=== PATIENT | female | born 1930 | race Caucasian/White ===

== ENCOUNTER 2016-11-28 12:19 | Emergency (ER) | payer MEDICARE, OTHER ==
[2016-11-28] MEDS ORDERED: Aspirin 81 MG Tab.Chew CHEW ONE (12:28)
[2016-11-28] MEDS ORDERED: Famotidine 20 MG/2 ML SDV IVPUSH ONE (12:28)
[2016-11-28] MEDS ORDERED: Ticagrelor 90 MG Tab PO ONE (12:28)
--- NOTE | 2016-11-28 12:28 | EDM.PDOC ---
ED HPI GENERAL MEDICAL PROBLEM - General Chief Complaint: Cardiovascular Problem Stated Complaint: NAUSEA, WEAKNESS Time Seen by Provider: 11/28/16 12:20 Source of Information: Reports: Patient, EMS Notes Reviewed, Family (Daughter), Other (Limited records from [place]). Denies: EMS, Old Records (No [facility] records available) History Limitations: Reports: No Limitations - History of Present Illness INITIAL COMMENTS - FREE TEXT/NARRATIVE: The patient was brought to the emergency room via ambulance with basic transport with no treatment in route. She was initially evaluated by her regular provider, Taylor Rodriguez PA-C, at [facility] in [place], with newly diagnosed atrial fibrillation with rapid ventricular response at that time with no treatment given in that facility. Patient did have some nonspecific URI symptoms during the last week, although those symptoms have improved somewhat at this time with no history of food poisoning or known exposure to infection. She began complaining of some nonspecific weakness and fatigue 2 days ago with progressive symptoms since about 6 AM yesterday morning , including some intermittent nausea, nonspecific generalized abdominal cramping , progressive weakness, dizziness, mild diaphoresis, and heart flutter. The patient denies any chest pain/pressure, orthopnea, paresthesias, or any other anginal-type symptoms, although somewhat decreased exercise tolerance during the last couple of months. No recent history of other abdominal pain, heartburn , diarrhea, melena, gross hematochezia, or any food intolerance, including fatty foods, etc., however some mild anorexia and loose stools during the last couple of days with normal bowel movement earlier this morning. The patient also denies any recent fever, cough, wheezing, dyspnea, etc.. Patient also denies any recent medication noncompliance. She has not had previous problems with arrhythmia, heart disease, etc. in the past, and she denies any recent use of antihistamines, decongestants, etc. Onset: Gradual, Unknown/Unsure Onset Date: 11/26/16 Duration: Constant, Getting Worse Location: Reports: Abdomen, Other (No pain other than nonspecific abdominal cramping as above) Quality: Reports: Other (Cramping) Severity: Mild Improves with: Reports: None Worsens with: Reports: None Context: Reports: Other (As above) Associated Symptoms: Reports: Diaphoresis, Loss of Appetite, Nausea/Vomiting ( No emesis), Weakness. Denies: Confusion, Chest Pain, Cough, Fever/Chills, Malaise, Seizure, Shortness of Breath, Syncope Treatments CLINICAL PROGRAM COORDINATOR: Reports: Other (see below) (None) Abdominal Pain Score (Numeric/FACES): 4 - Related Data Allergies Allergy/AdvReac Type Severity Reaction Status Date / Time beef derived (bovine) Allergy Cannot Verified 11/28/16 12:54 Remember egg Allergy Cannot Verified 11/28/16 12:54 Remember Penicillins Allergy Cannot Verified 11/28/16 12:54 Remember simvastatin Allergy Cannot Verified 11/28/16 12:54 Remember enviromental allergens Allergy Other Uncoded 11/28/16 12:56 milk protein extract Allergy Cannot Uncoded 11/28/16 12:54 Remember Home Meds: Home Meds Acetaminophen [Tylenol Arthritis] 650 mg PO Q8H 11/28/16 [History] Ascorbate Calcium [Vitamin C] 1,000 mg PO DAILY 11/28/16 [History] Aspirin [Adult Low Dose Aspirin EC] 81 mg PO DAILY 11/28/16 [History] Calcium Carb/Vit D3/Minerals [Hm Calcium 600 mg-Vit D Tab] 1 tab PO DAILY@12 [History] Cholecalciferol (Vitamin D3) [Vitamin D3] 1,000 mg PO DAILY 11/28/16 [History] Filgrastim-Sndz [Zarxio] 300 mcg SUBCUT ONETIME 11/28/16 [History] Hydroxychloroquine Sulfate [Plaquenil] 200 mg PO DAILY 11/28/16 [History] Latanoprost [Xalatan] 1 drop EYEBOTH BEDTIME 11/28/16 [History] Levothyroxine 25 mcg PO DAILY 11/28/16 [History] Levothyroxine 125 mcg PO DAILY 11/28/16 [History] Levothyroxine 150 mcg PO DAILY 11/28/16 [History] Lisinopril 5 mg PO DAILY 11/28/16 [History] Loratadine 10 mg PO DAILY 11/28/16 [History] Metoprolol Tartrate [Lopressor] 75 mg PO BID 11/28/16 [History] Milk Thistle-Tumeric 1 cap PO DAILY 11/28/16 [History] Multivitamin with Minerals [Multivitamins with Minerals] 1 tab PO DAILY [History] Sodium Chloride [Sodium Chloride] 1 gm PO DAILY 11/28/16 [History] Vitamin E [Vitamin E] 400 unit PO DAILY 11/28/16 [History] predniSONE [Prednisone] 2.5 mg PO DAILY 11/28/16 [History] Past Medical History HEENT History: Reports: Allergic Rhinitis, Cataract, Glaucoma, Hard of Hearing, Impaired Vision, Other (See Below). Denies: Macular Degeneration, Retinal Detachment Other HEENT History: Patient was glasses, bilateral hearing aids Cardiovascular History: Reports: High Cholesterol, Hypertension. Denies: Afib, Aneurysm, Arrhythmia, Blood Clots/VTE/DVT, CAD, Heart Failure, Heart Murmur, CA , PVD, Syncope Respiratory History: Reports: Intubation, Previous. Denies: Asthma, Bronchitis , Recurrent, COPD, Intubation, Difficult, PE, Pneumonia, Recurrent, Pneumothorax , Pulmonary Fibrosis, Sleep Apnea, TB Gastrointestinal History: Reports: Cholelithiasis, Colon Polyp, Other (See Below ). Denies: Bowel Obstruction, Celiac Disease, Chronic Constipation, Chronic Diarrhea, Diverticulosis, Fecal Incontinence, Gastritis, GERD, GI Bleed, Hepatitis, Inflammatory Bowel Disease, Irritable Bowel Syndrome, Jaundice, Pancreatitis Other Gastrointestinal History: History of unknown type of multiple colonic polyps removed in about 2006 Genitourinary History: Reports: Urinary Incontinence. Denies: Acute Renal Failure, Chronic Renal Insuffiency, Dialysis, Renal Calculus, STD, UTI, Recurrent [employer]ER History: Reports: . Denies: Dysfunctional Uterine Bleeding, Endometriosis, Fibroids, Polycystic Ovaries, Spontaneous : 5 Para: 5 (Full term without complications during pregnancies or deliveries) LMP (Approximate): Menopausal (At about age 48) Musculoskeletal History: Reports: Arthritis, Back Pain, Chronic, Neck Pain, Chronic, Osteoarthritis, RA. Denies: Amputation, Fracture, Gout, Osteoporosis, SLE Neurological History: Reports: None. Denies: Alzheimers Disease, Cerebral Aneurysms, Concussion, CVA, Headaches, Chronic, Head Trauma, Migraines, MS, Neuropathy, Peripheral, Parkinson's, Seizure, TIA Psychiatric History: Reports: None. Denies: Abuse, Victim of, ADD, ADHD, Addiction, Anxiety, Depression, Psych Hospitalization(s), PTSD, Suicide Attempt , Suicidal Ideation Endocrine/Metabolic History: Reports: None, Hypothyroidism, Vitamin D Deficiency , Other (See Below). Denies: Diabetes, Type I, Diabetes, Type II, IDDM, Osteoporosis Other Endocrine/Metabolic History: Hypomagnesemia, hyponatremia with history of SIADH Hematologic History: Reports: Anemia, Iron Deficiency, Other (See Below). 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 Denies: AIDS, HIV, SLE Other Immunologic History: Myelodysplastic syndrome as above Oncologic (Cancer) History: Reports: Breast (Left-sided breast cancer at age 63/ 1992 with mastectomy as below but no chemotherapy or radiation therapy; mild myelodysplastic syndrome), Other (See Below). Denies: Basal Cell Carcinoma, Hodgkin's Lymphoma, Leukemia, Malignant Melanoma, Metastatic, Non-Hodgkin's Lymphoma, Squamous Cell Carcinoma Dermatologic History: Reports: None. Denies: Eczema, Psoriasis - Infectious Disease History Infectious Disease History: Reports: Chicken Pox, Measles, Mumps. Denies: C- Difficile, Meningitis, Mononucleosis, MRSA, Pertussis (Whooping Cough), Rheumatic Fever, Rubella, Scarlet Fever, Shingles, TB, VRE - Past Surgical History Head Surgeries/Procedures: Reports: None HEENT Surgical History: Reports: Cataract Surgery, Oral Surgery, Other (See Below). Denies: Adenoidectomy, Eye Surgery, Laser Surgery, LASIK, Myringotomy w Tube(s), Naso-Sinus Surgery, Tonsillectomy Other HEENT Surgeries/Procedures: Left Sided cataract surgery in her early 70s, total teeth extraction with lower dental extractions in November 2012 with complete dentures uppers and lowers Cardiovascular Surgical History: Reports: None. Denies: Varicose Respiratory Surgical History: Reports: None. Denies: Thoracentesis GI Surgical History: Reports: Appendectomy, Cholecystectomy, Colonoscopy, Polypectomy, Other (See Below). Denies: EGD, Hernia, Abdominal, Hernia, Inguinal, Hernia Repair/Other Other GI Surgeries/Procedures: Last colonoscopy including polypectomy in about 2006 as above, open cholecystectomy in 1992, appendectomy in 1992 Female Surgical History: Reports: Breast Biopsy, Other (See Below). 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 Denies: Arthroscopic Knee, Arthroscopic Procedure, Carpal Tunnel, Ganglion Cyst , ORIF, Shoulder Surgery Other Musculoskeletal Surgeries/Procedures:: Right TEP in 2012 Oncologic Surgical History: Reports: Biopsy of Breast, Bone Marrow Aspiration, Mastectomy, Other (See Below) Other Oncologic Surgeries/Procedures: Left-sided mastectomy including left axillary lymph node dissection in 1992; bone marrow needle aspiration biopsy including chromosomal evaluation on 06/03/15 Dermatological Surgical History: Reports: None - Past Imaging History Past Imaging History: Reports: CAT Scan (CT of the chest on 06/03/15), Mammogram (Right-sided in October 2015) Social & Family History - Family History HEENT: Reports: Allergic Rhinitis, Other (See Below). Denies: Glaucoma, Macular Degeneration Other HEENT Family History: Son and 2 daughters with allergic rhinitis Cardiac: Reports: CAD, High Cholesterol, Hypertension, CA, Stent, Other (See Below). Denies: Afib, Aneurysm, Arrhythmia, Blood Clots/VTE/DVT, Bypass, Heart Failure, Heart Murmur, Pacemaker, PVD/COD Other Cardiac Family History: Father with fatal CA at age 70, hyperlipidemia in 2 sisters, brother with PTCA/stent at age 64, hypertension in maternal grandmother and brother Respiratory: Reports: Sleep Apnea, Other (See Below). Denies: Asthma, COPD, PE , Pneumothorax Other Respiratory Family Hisory: Brother with sleep apnea GI: Reports: None. Denies: Celiac Disease, Cholelithiasis, Colon Polyps, Diverticulosis, GERD, GI bleed, Inflammatory Bowel Disease, Irritable Bowel Syndrome, PUD : Reports: None. Denies: Dialysis, Renal Calculus, Renal Disease/ Insufficiency OBGYN: Reports: Endometriosis, Recurrent Spontaneous , Other (See Below) . Denies: Fibroids Other OBGYN Family History: Daughter with endometriosis, another daughter with recurrent SAB Musculoskeletal: Reports: None. Denies: Gout, RA, SLE Neurological: Reports: Alzheimers Disease, Dementia, Other (See Below). Denies : CVA, Migraines, MS, Parkinson's, Seizure, TIA Other Neurological Family History: Brother with fatal OBS at age 74 Psychiatric: Reports: None. Denies: Abuse, Victim of, ADD, ADHD, Anxiety, Depression, Psych Hospitalization(s), PTSD, Suicide Attempt Endocrine/Metabolic: Reports: Diabetes, Type I, Other (See Below). Denies: Diabetes, type II, Hypothyroidism, IDDM Other Endocrine/Metabolic Family History: Granddaughter with type I IDDM diagnosed at age 5, patient and daughter deny previous family history of diabetes mellitus in sister despite previous medical records Hematologic: Reports: None. Denies: Anemia Immunologic: Reports: None. Denies: AIDS, HIV, SLE Dermatologic: Reports: None. Denies: Eczema, Psoriasis Oncologic: Reports: Breast, Metastatic, Other (See Below). Denies: Cervix, Colon, Hodgkin's Lymphoma, Leukemia, Lymphoma, Non-Hodgkin's Lymphoma, Skin, Uterine Other Oncologic Family History: Daughter with breast cancer at age 63, maternal grandmother with fatal metastatic breast cancer at age 83 - Tobacco Use Smoking Status *Q: Never Smoker Tobacco Use Within Last Twelve Months: No Used Tobacco, but Quit: No Smoking Cessation Information Provided To Patient: No Second Hand Smoke Exposure: No Second Hand Smoke Education Provided: No - Caffeine Use Caffeine Use: Reports: Coffee (2 cups per day), Tea (2 cups per day). Denies: Energy Drinks, Soda - Alcohol Use Alcohol Use History: No Days Per Week of Alcohol Use: 0 (No previous DWIs, problems with alcohol abuse, etc.) Alcohol Use in Last Twelve Months: No - Recreational Drug Use Recreational Drug Use: No Drug Use in Last 12 Months: No Recreational Drug Type: Denies: Amphetamines (Speed), Cocaine, Heroin, Inhalants (Glues, Solvents, Aerosols), LSD (Acid), Marijuana/Hashish, Methamphetamine, Morphine - Living Situation & Occupation Living situation: Reports: (1968, 5 children), Other (Family including 2 different daughters, during the winter months, otherwise alone on the farm) Occupation: Retired ([employer] ) ED ROS GENERAL - Review of Systems Review Of Systems: See Below Constitutional: Reports: Weakness, Fatigue, Diaphoresis, Decreased Appetite. Denies: Fever, Chills, Night Sweats, Weight Loss, Weight Gain HEENT: Reports: Glasses, Hearing Loss, Rhinitis. Denies: Contact Lenses, Dental Pain, Ear Discharge, Ear Pain, Eye Discharge, Eye Pain, Nosebleed, Nose Pain, Sinus Problem, Vision Change Respiratory: Reports: Shortness of Breath. Denies: Pleuritic Chest Pain, Cough , Sputum, Hemoptysis Cardiovascular: Reports: Dyspnea on Exertion, Lightheadedness, Palpitations. Denies: Chest Pain, Blood Pressure Problem, Claudication, Edema, Orthopnea, PND , Syncope Endocrine: Reports: Fatigue GI/Abdominal: Reports: Abdominal Pain (Nonspecific as above), Diarrhea ( Borderline), Decreased Appetite, Nausea. Denies: Anorexia, Black Stool, Bloody Stool, Constipation, Difficulty Swallowing, Distension, Flatus, Hematemesis, Hematochezia, Melena, Mucous in Stool, Stool Incontinence, Vomiting : Reports: Incontinence. Denies: Discharge, Dysuria, Flank Pain, Frequency, Hematuria, Pain, Urgency, Urinary Retention Musculoskeletal: Reports: No Symptoms. Denies: Neck Pain, Shoulder Pain, Arm Pain, Back Pain, Leg Pain Skin: Denies: Cyanosis, Pallor, Diaphoresis, Bruising, Pruritis, Wound Neurological: Reports: Dizziness, Weakness. Denies: Confusion, Headache, Numbness, Paresthesia, Seizure, Syncope, Tingling, Trouble Speaking, Difficulty Walking, Change in Speech Psychiatric: Reports: No Symptoms. Denies: Agitation, Anxiety, Confusion, Depression, Hallucinations Hematologic/Lymphatic: Reports: Anemia Immunologic: Reports: No Symptoms ED EXAM, GENERAL - Physical Exam Exam: See Below Exam Limited By: No Limitations General Appearance: Alert, WD/WN, No Apparent Distress Eye Exam: Bilateral Eye: EOMI, Normal Inspection (No nystagmus), PERRL Ears: Normal External Exam, Hearing Loss (Bilateral hearing aids) Nose: Normal Mucosa, No Blood, Clear Rhinorrhea (Mild bilateral). No: Nasal Tenderness, Nasal Deformity Throat/Mouth: Normal Inspection, Normal Lips, Normal Gums, Normal Oropharynx, Normal Voice, No Airway Compromise. No: Normal Teeth (Complete dentures uppers and lowers), Dysphagia, Perioral Cyanosis Head: Atraumatic, Normocephalic. No: Facial Swelling, Facial Tenderness, Sinus Tenderness Neck: Supple, Non-Tender, Full Range of Motion, Carotid Bruit (Mild bilateral carotid bruits). No: Lymphadenopathy (L), Lymphadenopathy (R), Thyromegaly Respiratory/Chest: No Accessory Muscle Use, Chest Non-Tender, Rales (Moderate bilateral basilar rales). No: Pleural Rub, Retractions Cardiovascular: Normal Peripheral Pulses, No Murmur, No Rub, Tachycardia ( Moderate to severe), Irregularly Irregular. No: No Edema, No Gallop, Gallop/S3 , Gallop/S4, Friction Rub Peripheral Pulses: 2+: Radial (L), Radial (R), Dorsalis Pedis (L), Dorsalis Pedis (R) GI/Abdominal: Normal Bowel Sounds, Soft, Non-Tender, No Organomegaly, No Distention, No Abnormal Bruit, No Mass. No: Guarding (Female) Exam: Deferred Rectal (Female) Exam: Deferred Back Exam: Normal Inspection, Full Range of Motion. No: CVA Tenderness (L), CVA Tenderness (R), Muscle Spasm Extremities: Normal Range of Motion, Non-Tender, No Pedal Edema, Normal Capillary Refill, Other (Moderate rheumatoid changes in the hands bilaterally). No: Mindy's Sign Neurological: Alert, Oriented, CN II-XII Intact, Normal Cognition, Normal Gait, Normal Reflexes (Negative Babinski's), No Motor/Sensory Deficits Psychiatric: Normal Affect, Normal Mood Skin Exam: Warm, Dry, Intact, Normal Color, No Rash. No: Diaphoretic, Ecchymosis, Pallor, Petechiae, Wound/Incision Lymphatic: No Adenopathy EKG INTERPRETATION EKG Date: 11/28/16 Time: 12:20 Rhythm: A-Fib Rate (Beats/Min): 133 [place]: Normal (Neutral cardiac axis) P-Wave: Variable QRS: Other (QRS interval of 0.09 seconds representing repolarization changes versus beginning incomplete bifascicular bundle branch block) ST-T: Depressed (Nonspecific 0.[address] depressions in leads V4 through V6 with additional T-wave inversions in leads 3 and aVF) QT: Normal AL/PQ Interval: Variable Comparison: No Change (Previous EKG at the [facility] in [place] at 10:30 9 AM this morning) Course - Vital Signs Last Recorded V/S: Last Vital Signs Temp 36.1 C 11/28/16 12:20 Pulse 100 11/28/16 16:31 Resp 22 H 11/28/16 16:31 BP 152/90 H 11/28/16 16:31 Pulse Ox 94 L 11/28/16 16:31 Vital Signs - 24 hr 11/28/16 11/28/16 11/28/16 12:20 12:30 12:45 Temperature [ 36.1 C Temporal] Pulse, Peripheral Pulse, 120 H 132 H 127 H Peripheral [ Pulse Oximetry] Respiratory 25 H 27 H 25 H Rate Blood Pressure Blood Pressure 105/83 154/96 H [Right Lower Leg] Blood Pressure 100/78 [Right Upper Arm] O2 Sat by Pulse 100 100 100 Oximetry 11/28/16 11/28/16 11/28/16 12:50 13:00 13:15 Temperature [ Temporal] Pulse, 131 H Peripheral Pulse, 116 H 94 Peripheral [ Pulse Oximetry] Respiratory 24 H 22 H Rate Blood Pressure 154/96 H Blood Pressure 120/91 H 118/83 [Right Lower Leg] Blood Pressure [Right Upper Arm] O2 Sat by Pulse 100 100 Oximetry 11/28/16 11/28/16 11/28/16 13:30 14:00 14:30 Temperature [ Temporal] Pulse, Peripheral Pulse, 76 79 74 Peripheral [ Pulse Oximetry] Respiratory 20 22 H 22 H Rate Blood Pressure Blood Pressure 124/80 130/77 147/81 H [Right Lower Leg] Blood Pressure [Right Upper Arm] O2 Sat by Pulse 100 100 100 Oximetry 11/28/16 11/28/16 11/28/16 15:00 15:30 16:00 Temperature [ Temporal] Pulse, Peripheral Pulse, 98 102 H 101 H Peripheral [ Pulse Oximetry] Respiratory 23 H 21 H 24 H Rate Blood Pressure Blood Pressure 146/97 H 144/100 H 149/95 H [Right Lower Leg] Blood Pressure [Right Upper Arm] O2 Sat by Pulse 98 96 98 Oximetry 11/28/16 16:31 Temperature [ Temporal] Pulse, Peripheral Pulse, 100 Peripheral [ Pulse Oximetry] Respiratory 22 H Rate Blood Pressure Blood Pressure 152/90 H [Right Lower Leg] Blood Pressure [Right Upper Arm] O2 Sat by Pulse 94 L Oximetry - Orders/Labs/Meds Orders: Active Orders 24 hr Category Date Time Status Cardiac Monitoring [RC] . DIRECTED Care 11/28/16 12:28 Active EKG Documentation Completion [RC] ASDIRECTED Care 11/28/16 12:28 Active Oxygen Therapy, ED [RC] CONTINUOUS Care 11/28/16 12:28 Active Peripheral IV Care [RC] . DIRECTED Care 11/28/16 12:28 Active Pulse Oximetry [RC] CONTINUOUS Care 11/28/16 12:28 Active Up With Assistance [RC] PFP Care 11/28/16 12:28 Active Vital Signs [RC] PFP Care 11/28/16 12:28 Active Nothing per Oral Now Diet [DIET] Diet 11/28/16 Breakfast Active Chest 1V Frontal [CR] Stat Exams 11/28/16 12:20 Taken Chest PE [Ang Chest] [CT] Stat Exams 11/28/16 13:50 Taken Humerus Rt [CR] Stat Exams 11/28/16 14:43 Taken CULTURE URINE [RM] Routine Lab 11/28/16 14:43 Uncollected URINALYSIS W/MICROSCOPIC [UA W/MICROSCOPIC] [URIN] Lab 11/28/16 14:44 Uncollected Routine Enoxaparin [Lovenox] Med 11/28/16 13:50 Active 60 mg SUBCUT Q24H Sodium Chloride 0.9% [Saline Flush] Med 11/28/16 12:28 Active 10 ml FLUSH ASDIRECTED PRN Heat Therapy [OM.PC] Routine Oth 11/28/16 15:39 Ordered Obtain Past Medical Record [OM.PC] Urgent Oth 11/28/16 12:28 Active Peripheral IV Insertion Adult [OM.PC] Stat Oth 11/28/16 12:28 Ordered Resuscitation Status Stat Resus Stat 11/28/16 12:28 Ordered Medication Orders Enoxaparin Sodium (Lovenox) 60 mg SUBCUT Q24H [facility] Last Admin: 11/28/16 14:03 Dose: 60 mg Sodium Chloride (Saline Flush) 10 ml FLUSH ASDIRECTED PRN PRN Reason: Keep Vein Open Last Admin: 11/28/16 14:05 Dose: 10 ml Admin: 11/28/16 12:45 Dose: 10 ml Labs: Laboratory Tests 11/28/16 11/28/16 11/28/16 Range/Units 12:45 12:45 12:48 WBC 11.5 H (4.0-10.2) K/uL RBC 3.89 (3.77-5.09) M/uL Hgb 11.5 L (11.7-15.5) g/dL Hct 34.4 (34.0-46.0) % MCV 88.4 (84.0-98.0) fL MCH 29.6 (28.2-33.3) pg MCHC 33.4 (31.7-36.0) g/dL RDW 14.9 H (11.2-14.1) % Plt Count 137 L (150-350) K/uL Neut % (Auto) 79.3 (45.0-80.0) % Lymph % (Auto) 10.7 (10.0-50.0) % [place] % (Auto) 9.7 (2.0-14.0) % Eos % (Auto) 0.1 (0.0-5.0) % Baso % (Auto) 0.2 (0.0-2.0) % Neut # (Auto) 9.09 H (1.40-7.00) K/uL Lymph # (Auto) 1.23 (0.50-3.50) K/uL [place] # (Auto) 1.11 H (0.00-1.00) K/uL Eos # (Auto) 0.01 (0.00-0.50) K/uL Baso # (Auto) 0.02 (0.00-0.20) K/uL PT (9.8-11.7) SEC INR APTT (22.1-29.8) SEC D-Dimer, Quantitative (0-400) ng/mL Sodium 123 L* (136-145) mmol/L Potassium 5.2 H (3.5-5.1) mmol/L Chloride 91 L (98-107) mmol/L Carbon Dioxide 19.5 L (21.0-32.0) mmol/L BUN 28 H (7-18) mg/dL Creatinine 0.39 L (0.51-1.17) mg/dL Est Cr Clr Drug Dosing 86.10 mL/min Estimated GFR (MDRD) > 60 mL/min Glucose 126 H (74-106) mg/dL Lactic Acid 3.2 H (0.4-2.0) mmol/L Uric Acid 4.8 (2.6-7.2) mg/dL Calcium 9.0 (8.5-10.1) mg/dL Magnesium 2.2 (1.8-2.4) mg/dL Total Bilirubin 1.1 H (0.2-1.0) mg/dL AST 62 H (15-37) U/L ALT 64 (12-78) U/L Alkaline Phosphatase 122 H (46-116) IU/L Creatine Kinase 58 (26-308) U/L Creatine Kinase Index 1.6 (0.0-2.5) % CK-MB (CK-2) 0.90 (0.00-3.60) ng/mL Troponin I 0.000 (0.000-0.056) ng/mL NT-Pro-B Natriuret Pep 6783 H (0-125) pg/mL Total Protein 7.7 (6.4-8.2) g/dL Albumin 3.3 L (3.4-5.0) g/dL TSH, Ultra Sensitive 1.360 (0.358-3.740) mIU/mL 11/28/16 11/28/16 Range/Units 12:48 12:55 WBC (4.0-10.2) K/uL RBC (3.77-5.09) M/uL Hgb (11.7-15.5) g/dL Hct (34.0-46.0) % MCV (84.0-98.0) fL MCH (28.2-33.3) pg MCHC (31.7-36.0) g/dL RDW (11.2-14.1) % Plt Count (150-350) K/uL Neut % (Auto) (45.0-80.0) % Lymph % (Auto) (10.0-50.0) % [place] % (Auto) (2.0-14.0) % Eos % (Auto) (0.0-5.0) % Baso % (Auto) (0.0-2.0) % Neut # (Auto) (1.40-7.00) K/uL Lymph # (Auto) (0.50-3.50) K/uL [place] # (Auto) (0.00-1.00) K/uL Eos # (Auto) (0.00-0.50) K/uL Baso # (Auto) (0.00-0.20) K/uL PT 12.2 H (9.8-11.7) SEC INR 1.1 APTT 18.7 L (22.1-29.8) SEC D-Dimer, Quantitative 1460 H (0-400) ng/mL Sodium (136-145) mmol/L Potassium (3.5-5.1) mmol/L Chloride (98-107) mmol/L Carbon Dioxide (21.0-32.0) mmol/L BUN (7-18) mg/dL Creatinine (0.51-1.17) mg/dL Est Cr Clr Drug Dosing mL/min Estimated GFR (MDRD) mL/min Glucose (74-106) mg/dL Lactic Acid (0.4-2.0) mmol/L Uric Acid (2.6-7.2) mg/dL Calcium (8.5-10.1) mg/dL Magnesium (1.8-2.4) mg/dL Total Bilirubin (0.2-1.0) mg/dL AST (15-37) U/L ALT (12-78) U/L Alkaline Phosphatase (46-116) IU/L Creatine Kinase (26-308) U/L Creatine Kinase Index (0.0-2.5) % CK-MB (CK-2) (0.00-3.60) ng/mL Troponin I (0.000-0.056) ng/mL NT-Pro-B Natriuret Pep (0-125) pg/mL Total Protein (6.4-8.2) g/dL Albumin (3.4-5.0) g/dL TSH, Ultra Sensitive (0.358-3.740) mIU/mL Meds: Medications Generic Name Dose Route Start Last Admin Trade Name Freq PRN Reason Stop Dose Admin Enoxaparin Sodium 60 mg 11/28/16 13:50 11/28/16 14:03 Lovenox SUBCUT 60 mg Q24H JESUS Administration Sodium Chloride 10 ml 11/28/16 12:28 11/28/16 14:05 Saline Flush FLUSH 10 ml ASDIRECTED PRN Administration Keep Vein Open Discontinued Medications Generic Name Dose Route Start Last Admin Trade Name Freq PRN Reason Stop Dose Admin Aspirin 324 mg 11/28/16 12:28 11/28/16 12:44 Aspirin CHEW 11/28/16 12:29 324 mg ONETIME ONE Administration Diltiazem HCl 10 mg 11/28/16 12:30 11/28/16 12:39 Diltiazem IVPUSH 11/28/16 12:31 10 mg ONETIME ONE Administration Diltiazem HCl 120 mg 11/28/16 12:45 11/28/16 12:50 Cardizem Cd PO 11/28/16 12:46 120 mg ONETIME ONE Administration Diltiazem HCl 20 mg 11/28/16 12:51 11/28/16 12:56 Diltiazem IVPUSH 11/28/16 12:52 20 mg ONETIME ONE Administration Famotidine 40 mg 11/28/16 12:28 11/28/16 12:39 Pepcid IVPUSH 11/28/16 12:29 40 mg ONETIME ONE Administration Furosemide 60 mg 11/28/16 13:51 11/28/16 14:03 Lasix IVPUSH 11/28/16 13:52 60 mg NOW ONE Administration Iopamidol 100 ml 11/28/16 14:00 Isovue-370 (76%) IVPUSH 11/28/16 14:01 ONETIME ONE Ondansetron HCl 4 mg 11/28/16 15:45 11/28/16 15:50 Zofran Odt PO 11/28/16 15:46 4 mg ONETIME ONE Administration Ticagrelor 180 mg 11/28/16 12:28 11/28/16 12:44 Brilinta PO 11/28/16 12:29 180 mg ONETIME ONE Administration - Radiology Interpretation Free Text/Narrative:: 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 Overall good results to therapy as below with heart rates in the 80s to 100s prior to transfer with persistent atrial fibrillation and only very occasional PVCs noted Chest x-ray, portable, shows evidence of moderate cardiomegaly and CHF, including mild bilateral pleural effusions. Stable pulmonary obstructive changes with no evidence of pneumothorax, pulmonary infiltrates, etc. CTA of the chest using PE protocol was canceled secondary to IV infiltration X-rays of the right humerus confirmed suspected IV infiltration Departure - Departure Time of Disposition: 16:45 Disposition: DC/Tfer to Acute Hospital 02 Reason for Transfer *Q: Other (No chest pain or anginal complaints, cardiology consultation is needed) Condition: Fair Clinical Impression: Atrial fibrillation with RVR, D-dimer, elevated, Lactic acid blood increased, Hypoalbuminemia, Hyperkalemia, Elevated LFTs, Myelodysplastic syndrome, Hyponatremia Rheumatoid arthritis Qualifiers: Rheumatoid arthritis location: multiple sites Rheumatoid factor presence: unspecified presence Qualified Code(s): M06.9 - Rheumatoid arthritis, unspecified CHF (congestive heart failure) Qualifiers: Congestive heart failure type: unspecified congestive heart failure type Congestive heart failure chronicity: acute Qualified Code(s): I50.9 - Heart failure, unspecified Hypothyroidism Qualifiers: Hypothyroidism type: acquired Qualified Code(s): E03.9 - Hypothyroidism, unspecified IV infiltration Qualifiers: Encounter type: initial encounter Qualified Code(s): T80.1XXA - Vascular complications following infusion, transfusion and therapeutic injection, initial encounter Referrals: Domi Foreman MD [Primary Care Provider] - Forms: ED Department Discharge, Interfacility Transfer [facility] - Problem List & Annotations (1) Atrial fibrillation with RVR SNOMED Code(s): 272197873259566 Code(s): I48.91 - UNSPECIFIED ATRIAL FIBRILLATION Status: Acute Priority : High Current Visit: Yes Onset Date: 11/28/16 Annotation/Comment:: Tachycardia somewhat refractory initially to therapy with 2 doses of IV diltiazem and 1 oral dose of diltiazem required as above to control rhythm. Patient denies any recent medication noncompliance as above and is already on a beta germaine. No chest pain or anginal type symptoms, however chest pain protocol was initiated on patient's arrival to the emergency room. Note CHF as below. No previous cardiac history as above. Initial telephone consultation with [facility] at 15:05 hours with subsequent returned telephone call at 15:[address] Clancy, hospitalist at [facility], who does accept the patient for direct admission. No further treatment recommendations given. Some delay in hospital transfer secondary to bed availability without sequelae. Final acceptance at 16:05 hours from [facility]. Note mild nonspecific nausea prior to transfer relieved with one dose of Zofran ODT. Patient tolerating ice chips and otherwise nothing by mouth (2) CHF (congestive heart failure) SNOMED Code(s): 89141350 Code(s): I50.9 - HEART FAILURE, UNSPECIFIED Status: Acute Priority: High Current Visit: Yes Onset Date: 11/28/16 Annotation/Comment:: Acute moderate CHF based on chest x-ray and BNP. High-dose IV Lasix given in the emergency room. Continued IV diuresis will be required. Echocardiogram is warranted. Cardiology consultation depending on her clinical course. Qualifiers: Congestive heart failure type: unspecified congestive heart failure type Congestive heart failure chronicity: acute Qualified Code(s): I50.9 - Heart failure, unspecified (3) D-dimer, elevated SNOMED Code(s): 852666196 Code(s): R79.89 - OTHER SPECIFIED ABNORMAL FINDINGS OF BLOOD CHEMISTRY Status: Acute Priority: High Current Visit: Yes Onset Date: 11/28/16 Annotation/Comment:: CTA of the chest could not be completed in the emergency room secondary to IV infiltration as above. Subcutaneous Lovenox therapy at cardiac dose was initiated in the emergency room prior to conduction of this evaluation both as cardiac prophylaxis and treatment of possible PE, although no evidence of DVT by clinical exam. Consider venous Doppler studies of the lower extremities. (4) Elevated LFTs SNOMED Code(s): 950891448 Code(s): R79.89 - OTHER SPECIFIED ABNORMAL FINDINGS OF BLOOD CHEMISTRY Status: Acute Priority: High Current Visit: Yes Onset Date: 11/28/16 Annotation/Comment:: LFTs elevation likely secondary to her CHF. Continue to closely observed (5) Hyperkalemia SNOMED Code(s): 29839699 Code(s): E87.5 - HYPERKALEMIA Status: Acute Priority: Medium Current Visit: Yes Onset Date: 11/28/16 Annotation/Comment:: IV Lasix as above (6) Hypoalbuminemia SNOMED Code(s): 813697023 Code(s): E88.09 - [facility] DISORDERS OF PLASMA-PROTEIN METABOLISM, NEC Status: Chronic Priority: Medium Current Visit: Yes Onset Date: 11/28/16 Annotation/Comment:: Glucerna high-protein supplements advisable as snacks (7) Hyponatremia SNOMED Code(s): 42329607 Code(s): E87.1 - HYPO-OSMOLALITY AND HYPONATREMIA Status: Chronic Priority: Medium Current Visit: Yes Annotation/Comment:: Known history of 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 No Clinical evidence of sepsis (9) Myelodysplastic syndrome SNOMED Code(s): 642752550 Code(s): D46.9 - MYELODYSPLASTIC SYNDROME, UNSPECIFIED Status: Chronic Priority: Medium Current Visit: Yes Onset Date: 09/13/16 Annotation/ Comment:: Known history of myelodysplastic syndrome with mild leukocytosis secondary to her current medications, i.e., Zarxio, and/or current stress reaction. Mild anemia and thrombocytopenia. Continue to observe closely. Her next dose of Zarxio is due tomorrow (10) Rheumatoid arthritis SNOMED Code(s): 13362148 Code(s): M06.9 - RHEUMATOID ARTHRITIS, UNSPECIFIED Status: Chronic Priority: Medium Current Visit: Yes Annotation/Comment:: Stable by history with chronic prednisone therapy Qualifiers: Rheumatoid arthritis location: multiple sites Rheumatoid factor presence: unspecified presence Qualified Code(s): M06.9 - Rheumatoid arthritis, unspecified (11) Hypothyroidism (acquired) SNOMED Code(s): 046316842 Code(s): E03.9 - HYPOTHYROIDISM, UNSPECIFIED Status: Chronic Priority: Medium Current Visit: Yes Annotation/Comment:: TSH is normal today (12) IV infiltration SNOMED Code(s): 93923280 Code(s): T80.1XXA - VASCULAR COMP FOL INFUSN, TRANFS AND THERAPUTC INJECT, INIT Status: Acute Priority: High Current Visit: Yes Onset Date: Annotation/Comment:: IV infiltration with contrast as above. Arm elevation , heating pad, etc. initiated. Note no additional IV access possible secondary to previous history of left sided mastectomy. Further IV therapy, PICC line, etc. per discretion of accepting providers Qualifiers: Encounter type: initial encounter Qualified Code(s): T80.1XXA - Vascular complications following infusion, transfusion and therapeutic injection, initial encounter - Problem List Review Problem List Initiated/Reviewed/Updated: Yes - My Orders Last 24 Hours: My Active Orders 11/28/16 12:20 Chest 1V Frontal [CR] Stat 11/28/16 12:28 Cardiac Monitoring [RC] . DIRECTED EKG Documentation Completion [RC] ASDIRECTED Oxygen Therapy, ED [RC] CONTINUOUS Peripheral IV Care [RC] . DIRECTED Pulse Oximetry [RC] CONTINUOUS Up With Assistance [RC] PFP Vital Signs [RC] PFP Sodium Chloride 0.9% [Saline Flush] 10 ml FLUSH ASDIRECTED PRN Obtain Past Medical Record [OM.PC] Urgent Peripheral IV Insertion Adult [OM.PC] Stat Resuscitation Status Stat 11/28/16 13:50 Chest PE [Ang Chest] [CT] Stat Enoxaparin [Lovenox] 60 mg SUBCUT Q24H 11/28/16 14:43 Humerus Rt [CR] Stat CULTURE URINE [RM] Routine 11/28/16 14:44 URINALYSIS W/MICROSCOPIC [UA W/MICROSCOPIC] [URIN] Routine 11/28/16 15:39 Heat Therapy [OM.PC] Routine 11/28/16 Breakfast Nothing per Oral Now Diet [DIET] - Assessment/Plan Last 24 Hours: My Active Orders 11/28/16 12:20 Chest 1V Frontal [CR] Stat 11/28/16 12:28 Cardiac Monitoring [RC] . DIRECTED EKG Documentation Completion [RC] ASDIRECTED Oxygen Therapy, ED [RC] CONTINUOUS Peripheral IV Care [RC] . DIRECTED Pulse Oximetry [RC] CONTINUOUS Up With Assistance [RC] PFP Vital Signs [RC] PFP Sodium Chloride 0.9% [Saline Flush] 10 ml FLUSH ASDIRECTED PRN Obtain Past Medical Record [OM.PC] Urgent Peripheral IV Insertion Adult [OM.PC] Stat Resuscitation Status Stat 11/28/16 13:50 Chest PE [Ang Chest] [CT] Stat Enoxaparin [Lovenox] 60 mg SUBCUT Q24H 11/28/16 14:43 Humerus Rt [CR] Stat CULTURE URINE [RM] Routine 11/28/16 14:44 URINALYSIS W/MICROSCOPIC [UA W/MICROSCOPIC] [URIN] Routine 11/28/16 15:39 Heat Therapy [OM.PC] Routine 11/28/16 Breakfast Nothing per Oral Now Diet [DIET] Assessment:: As above Plan: As above. Extensive precautions were given to the patient and her daughter, who are in agreement with the treatment plan. Patient's family are performing direct admission to [facility] in [place] as above. Ambulance transfer with marketing systems manager accompaniment
[2016-11-28] MEDS ORDERED: Diltiazem 25 MG/5 ML SDV IVPUSH ONE ×2 (12:30→12:51)
[2016-11-28] MEDS ORDERED: Diltiazem 120 MG Cap.CD PO ONE (12:45)
[2016-11-28] MEDS: Sodium Chloride 0.9% 10 ML Syringe FLUSH PRN ×2 (12:45→14:05)
[2016-11-28 13:36] LABS: CHLORIDE,CL 91 mmol/L (98-107)
[2016-11-28 13:37] LABS: SODIUM,NA 123 mmol/L (136-145)
[2016-11-28] MEDS ORDERED: Enoxaparin 60 MG/0.6 ML Syringe SUBCUT SCH (13:50)
[2016-11-28] MEDS ORDERED: Furosemide 40 MG/4 ML VIAL IVPUSH ONE (13:51)
[2016-11-28] MEDS ORDERED: Iopamidol 755 Mg/ML 100 ML Bottle IVPUSH ONE (14:00)
[2016-11-28] MEDS ORDERED: Ondansetron 4 MG Tab.DIS PO ONE (15:45)
== END 2016-11-28 16:45 ==
LOC: LL.ED 12:19
DX: I48.91 Unspecified atrial fibrillation (principal); I11.0 Hypertensive heart disease with heart failure; I50.9 Heart failure, unspecified; M06.9 Rheumatoid arthritis, unspecified; D46.9 Myelodysplastic syndrome, unspecified; E03.9 Hypothyroidism, unspecified; R79.1 Abnormal coagulation profile; R79.89 Other specified abnormal findings of blood chemistry; E88.09 Other disorders of plasma-protein metabolism, not elsewhere classified; E87.5 Hyperkalemia; E87.1 Hypo-osmolality and hyponatremia; Z91.030 Bee allergy status; Z91.011 Allergy to milk products; Z88.0 Allergy status to penicillin; Z88.8 Allergy status to other drugs, medicaments and biological substances; Z79.899 Other long term (current) drug therapy
CPT/HCPCS: 36415; 71010; 71275; 73060; 80053; 82550; 82553; 83605; 83735; 83880; 84443; 84484; 84550; 85025; 85379; 85610; 85730; 93005; 96372; 96374; 96375; 99285; A9270; J1650; J1940; J3490; J7050; 93010; S0028